=== PATIENT | male | born 1955 | race Caucasian/White ===

== ENCOUNTER → 2019-06-20 | Outpatient (REF) | payer BC ==
[~2019-06-20] MED LIST: ADVIL; BACL10TA2; BACL1TAB9; CELE40TA; CYMBALTA; DEPA500T2; LIDO5DIS; PREG100CA; SIMV80TA; TOPI100T; TOPI50TA; TRAM50TA2; VICO5TAB; VOLT1GEL; ZOCO80TA
== END ==
LOC: M LAB REF 10:10
PROVIDERS: ATTEND Physician Assistant Medical
DX: G89.29 Other chronic pain (principal)